=== PATIENT | male | born 1985 | race Caucasian/White ===

== ENCOUNTER 2018-07-29 15:09 | Emergency (ER) | payer OTHER, SELFPAY ==
[2018-07-29 15:12] VITALS: BP 100/63; PULSE 88; RESP 18; O2SAT 94; BMI 35.5
--- NOTE | 2018-07-29 15:23 | ED_ITS ---
HPI - Allergic Reaction General Chief complaint: Allergic Reaction Stated complaint: heart racing/eyes (everything is bright)/n&v Time Seen by Provider: 07/29/18 15:16 Source: patient Mode of arrival: ambulatory Limitations: no limitations History of Present Illness HPI narrative: 33-year-old male comes emergency department with complaint of allergic reaction. About 10-20 minutes ago he was stung on the right side of the neck by a DD. 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 Patient states these have some swelling on the side of his neck. He denies any difficulty breathing, no swelling of his throat, no swelling of his lips or oropharynx. He feels little nauseated, feels like he needs to vomit and has thrown up a couple times. He has not had any diarrhea. He denies any chest pain shortness of ck ath currently. No rashes elsewhere. Patient denies any other medical problems, no prior surgical history, he denies any allergies to medications. He does smoke tobacco, he drinks alcohol, he occasionally uses THC but denies other illicit. Related Data Previous Rx's Medication Instructions Recorded epinephrine [EpiPen] 0.3 mg IM Q10M PRN #2 each 07/29/18 prednisone 50 mg PO DAILY #3 tab 07/29/18 Allergies Allergy/AdvReac Type Severity Reaction Status Date / Time latex Allergy Verified 07/29/18 15:12 Review of Systems Review of Systems ROS Unobtainable: All systems reviewed & are unremarkable except as noted in HPI and below Constitutional Denies chills, Denies fever(s) and Reports malaise ENT Ears, Nose, Mouth, and Throat: Reports neck pain (Swelling right neck at the sting site), Denies sore throat, Denies throat swelling and Denies tongue swelling Cardiovascular Denies chest pain, Denies syncope, Reports rapid heart rate, Denies edema, Denies irregular heart rhythm, Denies lightheadedness, Denies palpitations, Denies dyspnea, Denies dyspnea on exertion and Denies orthopnea Respiratory Denies change in phlegm color, Denies chest congestion, Denies cough, Denies ex cessive phlegm production, Denies dyspnea, Denies dyspnea on exertion and Denies wheezing Gastrointestinal Gastrointestinal: Denies abdominal pain, Denies change in bowel habits, Denies constipation, Denies diarrhea, Reports nausea and Reports vomiting Genitourinary Denies hematuria, Denies flank pain, Denies urinary frequency and Denies urinary urgency Musculoskeletal Reports neck pain (Swelling right neck at the sting site) Integumentary/Breasts Denies rash and Denies skin swelling Neurologic Denies syncope Endocrine Denies palpitations Allergic/Immunologic Denies throat swelling, Denies tongue swelling and Denies wheezing Exam Initial Vital Signs Initial Vital Signs: Vital Signs Pulse Rate 88 07/29/18 15:12 Respiratory Rate 18 07/29/18 15:12 Blood Pressure 100/63 07/29/18 15:12 Pulse Oximetry 94 07/29/18 15:12 GEN: well nourished, male, alert and oriented x 3, patient appears to be in mild distress. HEENT: Atraumatic, pupils are equal round reactive to light, extraocular movements are intact, nares are clear. Throat is clear without any exudates, erythema, tonsillar enlargement or uvular deviation, patient is little bit sore in the right neck, can see the stinger site, there is no stinger present it appears to have been removed. There is some erythema surrounding the area. No stridor. HEART: Regular rate and rhythm without murmur, clicks, rubs. LUNGS:Lungs clear to auscultation, no wheezes, rales, crackles, chest moves symmetrically ABD:bowel sounds normal, soft, non-tender, no guarding, rebound, rigidity, no masses noted, no hepatosplenomegaly MSCL: Non-tender, no muscle atrophy, muscles strength 5/5 upper and lower extremities, full range of motion, normal gait NEURO:CN 2-12 intact, sensation normal SKIN: patient has some erythema that could be consistent with sunburn and he also works outdoors. He states that there is no rash elsewhere, no hives are noted. Course Orders Ordered: Discontinued Medications Diphenhydramine HCl (Benadryl) 50 mg IV NOW ONE Stop: 07/29/18 15:17 Last Admin: 07/29/18 15:28 Dose: 50 mg Famotidine (Pepcid) 20 mg in 50 mls @ 200 mls/hr IV NOW ONE Stop: 07/29/18 15:30 Last Infusion: 07/29/18 15:37 Dose: 0 mls/hr Admin: 07/29/18 15:28 Dose: 200 mls/hr Sodium Chloride (Normal Saline 0.9%) 1,000 mls @ 1,000 mls/hr IV BOLUS ONE Stop: 07/29/18 16:15 Last Infusion: 07/29/18 16:13 Dose: 0 mls/hr Admin: 07/29/18 15:28 Dose: 1,000 mls/hr Methylprednisolone (Solu-Medrol 125 Mg Vial) 125 mg IV NOW ONE Stop: 07/29/18 15:17 Last Admin: 07/29/18 15:28 Dose: 125 mg Vital Signs - 8 hr 07/29/18 15:12 07/29/18 15:45 07/29/18 16:00 Temperature Pulse Rate 88 62 75 Respiratory Rate 18 10 L 17 Blood Pressure 100/63 Blood Pressure [Left Arm] 137/87 143/86 H Pulse Oximetry 94 99 100 07/29/18 16:12 07/29/18 16:52 Temperature 98.3 F Pulse Rate 78 Respiratory Rate 18 Blood Pressure Blood Pressure [Left Arm] 144/84 H Pulse Oximetry 99 MDM - Allergic Reaction MDM Narrative Medical decision making narrative: Patient does not appear to be in anaphylaxis, he was given Benadryl, Solu-Medrol as well as Pepcid and fluids. Recheck about 45 minutes after medications patient is feeling much better. Seven little bit of pain at the sting or side on the neck but otherwise feels asymptomatic. Plan to watch the patient for entire hour after medications if he is still doing well plan to DC home. He did not appear to be having an aphylactic reaction today but was given EpiPen with instructions in case he had recurrent stings in the future. As well as prednisone for 3 days and encouraged to continue Benadryl as needed. Discharge Plan Departure Patient Disposition: Home Clinical Impression: Allergic reaction to bee sting Discharge Date/Time: 07/29/18 17:26 Interventions: ED Discharge Assessment Last Done: 07/29/18 17:25 Instructions: DI for Anaphylaxis, DI for General Allergic Reactions Activity Restrictions/Additional Instructions: Follow-up with primary care in the next 2-3 days if her symptoms have not totally resolved. Take steroids until completely gone. Take Benadryl 1-2 tablets every 6-8 hours for symptoms. Return to the emergency department for fevers greater than 100.4 F, recurrent swelling of the neck, fat face, mouth or throat, if it is difficult to breathe, if you have stridor or high-pitched wheezing, new chest pain, shortness of breath, persistent vomiting, diarrhea, hives or new rash or other new or concerning symptoms. Prescriptions: New prednisone 50 mg tablet 50 mg PO DAILY Qty: 3 RF: 0 epinephrine [EpiPen] 0.3 mg/0.3 mL auto-injector 0.3 mg IM Q10M PRN (Reason: anaphylaxis) Qty: 2 RF: 0
[2018-07-29] MEDS: methylPREDNISolone 125 MG/2 ML VIAL IV (15:28)
[2018-07-29] MEDS: SODIUM CHLORIDE 0.9% 1,000 ML 1000 ML IV (15:28)
[2018-07-29] MEDS: FAMOTIDINE 20 MG/50 ML PIGGYBACK 200 MG IV (15:28)
[2018-07-29] MEDS: diphenhydrAMINE 50 MG/ML VIAL IV (15:28)
[2018-07-29 15:45] VITALS: BP 137/87; PULSE 62; RESP 10; O2SAT 99
[2018-07-29 16:00] VITALS: BP 143/86; PULSE 75; RESP 17; O2SAT 100
[2018-07-29 16:12] VITALS: TEMP 36.8
[2018-07-29 16:52] VITALS: BP 144/84; PULSE 78; RESP 18; O2SAT 99
== END 2018-07-29 17:26 | disposition home or self-care (01) ==
PROVIDERS: Emergency Provider Emergency Medicine
DX: T63.441A Toxic effect of venom of bees, accidental (unintentional), initial encounter (principal); R00.0 Tachycardia, unspecified; R11.2 Nausea with vomiting, unspecified; Y99.0 Civilian activity done for income or pay
CPT/HCPCS: 96361; 96374; 96375; 99283; 99284; J1200; J2930

== ENCOUNTER → 2019-06-20 17:01 | Outpatient (CLI) | payer OTHER, SELFPAY ==
--- NOTE | 2019-06-20 17:03 | DI.US.S_ITS ---
PROCEDURE: US ABDOMEN LIMITED INDICATIONS: POSSIBLE INGUINAL HERNIA ON RIGHT TECHNIQUE: Real-time focused scanning was performed of the abdomen, with image documentation. COMPARISON: None. FINDINGS: In this patient with this given history, scrutiny is given to the right groin for a hernia. None can be seen. Multiple prominent right inguinal lymph nodes are seen, with the largest measuring up to 2.4 cm in length. This largest lymph node demonstrates a normal, well preserved fatty center. IMPRESSION: Negative for hernia. Prominent right groin lymph nodes are seen. Dictated by: Venancio Hathaway M.D. on 06/20/2019 at 16:34 Approved by: Venancio Hathaway M.D. on 06/20/2019 at 16:35
== END ==
PROVIDERS: Referring Provider Family Medicine; Visit Provider Family Medicine
DX: R10.31 Right lower quadrant pain (principal); R59.0 Localized enlarged lymph nodes
CPT/HCPCS: 76705

== ENCOUNTER → 2019-06-26 06:58 | Outpatient (CLI) | payer OTHER, SELFPAY ==
[2019-06-26 09:50] LABS: Add Manual Diff / Slide Review NO; Basophils Absolute Auto 0 /uL (0-100); Basophils Percent Auto 0.6 % (0-2); Eosinophils Absolute Auto 200 /uL (0-450); Eosinophils Percent Auto 2.6 % (2-4); Hematocrit 46.1 % (41-53); Lymphocytes Absolute Auto 1800 /uL (1100-4500); Lymphocytes Percent Auto 23.3 % (25-40); Mean Corpuscular HGB Conc 34.6 % (30-36); Mean Corpuscular Hemoglobin 33.6 PG (26-34); Mean Corpuscular Volume 97.1 fL (80-100); Monocytes Absolute Auto 700 /uL (0-900); Monocytes Percent Auto 9.5 % (3-14); Neutrophils Absolute Auto 5000 /uL (1500-7000); Platelet Count 303 X10^3/uL (150-400); Red Blood Cell Count 4.75 X10^6/uL (4.5-5.9); Red Cell Distribution Width 13.2 % (11.6-14.8); White Blood Cell Count 7.8 X10^3/uL (4.5-11.0)
[2019-06-26 10:01] LABS: Alanine Aminotransferase 46 IU/L (<50); Albumin 5.2 g/dL (3.5-5.0); Albumin Globulin Ratio 1.7 (1.0-2.8); Alkaline Phosphatase 93 U/L (38-126); Aspartate Aminotransferase 42 IU/L (17-59); BUN Creatinine Ratio 16.4 (6-22); Bilirubin Total 0.8 mg/dL (0.2-1.3); Blood Urea Nitrogen 12 mg/dL (9-20); Calcium 10.5 mg/dL (8.4-10.2); Carbon Dioxide 29 mmol/L (22-32); Chloride 100 mmol/L (98-107); Cholesterol 221 mg/dL (140-199); Estimated Glomerular Filt Rate > 60.0 mL/min (>60); Glucose 99 mg/dL (70-100); HDL Cholesterol 61 mg/dL (40-60); HEMOLYSIS < 15 (0-50); LDL Cholesterol Calculated 104 mg/dL (<100); Potassium 4.3 mmol/L (3.4-5.1); Sodium 141 mmol/L (137-145); Total Protein 8.2 g/dL (6.3-8.2); Triglycerides 279 mg/dL (35-150)
== END ==
PROVIDERS: PCP Family Medicine; Referring Provider Family Medicine; Visit Provider Family Medicine
DX: R10.31 Right lower quadrant pain (principal); R59.0 Localized enlarged lymph nodes
CPT/HCPCS: 36415; 80053; 80061; 85025

== ENCOUNTER → 2019-06-26 13:09 | Outpatient (CLI) | payer OTHER, SELFPAY ==
--- NOTE | 2019-06-26 13:11 | DI.CT.S_ITS ---
PROCEDURE: CT ABDOMEN PELVIS W CON INDICATIONS: Abdominal pains lower right TECHNIQUE: After the administration of intravenous contrast, 5 mm thick sections acquired from the diaphragm to the symphysis. 5 mm coronal and sagittal reformats were acquired. For radiation dose reduction, the following was used: automated exposure control, adjustment of mA and/or kV according to patient size. COMPARISON: [facility], , ABDOMEN LIMITED, 06/20/2019, 17:13. FINDINGS: Image quality: Excellent. ABDOMEN: Lung bases: Lung bases are clear. Heart size is normal. Solid organs: Liver is normal in size and enhancement. Gallbladder is normal. Biliary system is non dilated. Pancreas enhances normally. Spleen is normal in size and enhancement. No adrenal nodules. Kidneys demonstrate normal size and enhancement, without hydronephrosis. Peritoneum and bowel: Bowel loops demonstrate normal wall thickness and caliber. No free fluid or air. Nodes and vessels: No retroperitoneal or mesenteric adenopathy by size criteria. Aorta and inferior vena cava are normal in size. Miscellaneous: No ventral hernias. PELVIS: Genitourinary: Bladder wall thickness is normal. Miscellaneous: No inguinal hernias. There is an elongated right inguinal lymph node measuring 0.7 cm in short axis and 2.2 cm long, most likely a reactive lymph node. Bones: No suspicious bony lesions. No vertebral body compression fractures. IMPRESSION: 1. No right inguinal hernia. 2. Elongated right inguinal lymph node measures 0.7 cm in short axis, normal by size criteria. It is most likely a benign reactive lymph node. This was seen on the previous ultrasound with fatty hilum. Dictated by: Estevan Cano M.D. on 06/26/2019 at 14:19 Approved by: Estevan Cano M.D. on 06/26/2019 at 14:31
== END ==
PROVIDERS: PCP Family Medicine; Referring Provider Family Medicine; Visit Provider Family Medicine
DX: R10.31 Right lower quadrant pain (principal); R59.0 Localized enlarged lymph nodes
CPT/HCPCS: 36415; 74177; 80053; 80061; 85025; Q9967

== ENCOUNTER 2020-08-17 21:16 | Emergency (ER) | payer OTHER, SELFPAY ==
[2020-08-17] VITALS (7 sets, daily range): BP systolic 172–195; BP diastolic 77–120; PULSE 90–111; RESP 13–23; TEMP 36.8; O2SAT 93–98; BMI 37.1
--- NOTE | 2020-08-17 21:25 | DI.RAD.S_ITS ---
PROCEDURE: XR CHEST 1V INDICATIONS: chest pain TECHNIQUE: One view of the chest was acquired. COMPARISON: None. FINDINGS: Surgical changes and devices: None. Lungs and pleura: Lungs are clear. No pleural effusions or pneumothorax. Mediastinum: Mediastinal contours appear normal. Heart size is normal. Bones and chest wall: No suspicious bony lesions. Overlying soft tissues appear unremarkable. IMPRESSION: No acute cardiopulmonary disease. Dictated by: Estevan Cano M.D. on 08/17/2020 at 21:47 Approved by: Estevan Cano M.D. on 08/17/2020 at 21:53
--- NOTE | 2020-08-17 21:45 | ED.CHESTPAIN ---
HPI - Chest Pain General Chief Complaint: Chest Pain Stated Complaint: chest pains Time Seen by Provider: 08/17/20 21:25 Source: patient Mode of arrival: Ambulatory Limitations: no limitations History of Present Illness HPI narrative: Patient is a 35-year-old male here for evaluation of upper abdominal and chest discomfort. He states that his symptoms started earlier today. He has had symptoms like this in the past and has been associated with vomiting and that is what happened earlier today. He vomited 1 time and afterwards started having discomfort. Prior to today in the symptoms normally last only a short period time but today they have continued. There was no blood in the vomit. There is no change in bowel habits. Has not tried anything for his symptoms prior to arrival Related Data Previous Rx's Medication Instructions Recorded epinephrine 0.3 mg/0.3 mL 0.3 mg IM Q10M PRN #2 each 07/29/18 injection, auto-injector (EpiPen) sucralfate 1 gram tablet (Carafate) 1 g PO QACHS #60 tab 08/18/20 Allergies Allergy/AdvReac Type Severity Reaction Status Date / Time bee venom protein (honey bee) Allergy Verified 08/17/20 21:37 latex Allergy Verified 06/20/19 13:47 Review of Systems Constitutional Constitutional: Reports system reviewed and no additional complaints, except as documented Cardiovascular Cardiovascular: Reports chest pain and Denies dyspnea Respiratory Respiratory: Denies dyspnea Gastrointestinal Comments: Abdominal pain, nausea vomiting Musculoskeletal Comments: No back pain Integumentary/Breasts Comments: No rash Hematologic/Lymphatic On Anticoagulants: No Patient History Medical History RLQ abdominal pain Social History Smoking Status: Former smoker alcohol intake: current substance use type: marijuana Smoking Status: Former smoker alcohol intake frequency: holidays/special occasions only Substance Use Type: marijuana Exam Initial Vital Signs Initial Vital Signs: Vital Signs Pulse Rate 106 H 08/17/20 21:36 Respiratory Rate 18 08/17/20 21:36 Blood Pressure 181/118 H 08/17/20 21:36 Pulse Oximetry 98 08/17/20 21:36 Const General: cooperative and healthy appearing HENKS Head: normal to inspection and normocephalic Resp Effort & Inspection: normal respiratory effort Cardio Rate: tachycardic Rhythm: regular rhythm GI Palpation: soft and tender (Epigastric region and right upper quadrant) Skin General: no rashes or lesions noted Neuro General: patient alert, patient awake and patient oriented x3 Extrem General: normal to inspection and capillary refill normal Psych Appearance: grossly normal Course Orders Ordered: ED Orders 08/17/20 21:25 XR chest 1V Stat EKG-12 Lead Stat 08/17/20 22:00 Complete Blood Count AUTO DIFF Stat Comprehensive Metabolic Panel Stat Lipase Stat 08/17/20 22:26 US abdomen limited Stat Discontinued Medications Al Hydrox/Mg Hydrox/Simethicone 20 ml/ Lidocaine HCl 15 ml 0 ml PO NOW ONE Stop: 08/17/20 21:47 Last Admin: 08/17/20 22:04 Dose: 35 ml Documented by: NASEEM Sodium Chloride (Normal Saline 0.9%) 1,000 mls @ 1,000 mls/hr IV BOLUS ONE Stop: 08/17/20 22:45 Last Infusion: 08/17/20 23:10 Dose: 0 mls/hr Documented by: Admin: 08/17/20 22:05 Dose: 1,000 mls/hr Documented by: NASEEM Lorazepam (Lorazepam 0.5 Mg Tablet) 1 mg PO NOW ONE Stop: 08/18/20 00:40 Last Admin: 08/18/20 00:42 Dose: 1 mg Documented by: NASEEM Ondansetron HCl (Ondansetron 4 Mg/2 Ml Inj) 4 mg IV NOW ONE Stop: 08/17/20 21:47 Last Admin: 08/17/20 22:04 Dose: 4 mg Documented by: NASEEM Ondansetron HCl (Ondansetron 4 Mg Odt Prepack) 1 bottle MISC SEEINSTR ONE Stop: 08/18/20 00:14 Last Admin: 08/18/20 00:27 Dose: 1 bottle Documented by: NASEEM Pantoprazole Sodium (Pantoprazole 40 Mg Vial) 40 mg IV NOW ONE Stop: 08/17/20 21:47 Last Admin: 08/17/20 22:04 Dose: 40 mg Documented by: NASEEM Vital Signs Vital signs: Vital Signs - 8 hr 08/17/20 21:36 08/17/20 21:37 08/17/20 22:00 Temperature 98.2 F Pulse Rate 106 H 99 H 111 H Respiratory Rate 18 22 20 Blood Pressure 181/118 H 181/118 H 195/115 H Pulse Oximetry 98 97 97 08/17/20 22:30 08/17/20 23:00 08/17/20 23:01 Temperature Pulse Rate 93 H 90 98 H Respiratory Rate 14 13 23 Blood Pressure 191/120 H 172/77 H Pulse Oximetry 96 96 93 08/17/20 23:30 08/18/20 00:00 08/18/20 00:54 Temperature 98.6 F Pulse Rate 94 H 104 H 98 H Respiratory Rate 17 22 24 Blood Pressure 187/108 H Pulse Oximetry 97 98 98 MDM - Chest Pain Lab Data Attestation: I reviewed the patient's lab results. Result diagrams: 08/17/20 22:00 08/17/20 22:00 Labs: Lab Results 08/17/20 08/17/20 Range/Units 22:00 22:00 WBC 8.7 (4.5-11.0) X10^3/uL RBC 4.94 (4.5-5.9) X10^6/uL Hgb 16.3 (13.5-17.5) g/dL Hct 46.7 (41-53) % MCV 94.6 (80-100) fL MCH 32.9 (26-34) PG MCHC 34.8 (30-36) % RDW 13.1 (11.6-14.8) % Plt Count 289 (150-400) X10^3/uL Neut % (Auto) 78.6 H (50-75) % Lymph % (Auto) 13.8 L (25-40) % [place] % (Auto) 7.1 (3-14) % Eos % (Auto) 0.1 L (2-4) % Baso % (Auto) 0.4 (0-2) % Neut # (Auto) 6800 (7881-9711) /uL Lymph # (Auto) 1200 (2124-2493) /uL [place] # (Auto) 600 (0-900) /uL Eos # (Auto) 0 (0-450) /uL Baso # (Auto) 0 (0-100) /uL Sodium 136 L (137-145) mmol/L Potassium 3.9 (3.4-5.1) mmol/L Chloride 98 (98-107) mmol/L Carbon Dioxide 24 (22-32) mmol/L BUN 14 (9-20) mg/dL Creatinine 0.73 (0.66-1.25) mg/dL Estimated GFR > 60.0 (>60) mL/min BUN/Creatinine Ratio 19.2 (6-22) Glucose 114 H (70-100) mg/dL Calcium 11.3 H (8.4-10.2) mg/dL Total Bilirubin 0.8 (0.2-1.3) mg/dL AST 81 H (17-59) IU/L ALT 103 H (<50) IU/L Alkaline Phosphatase 107 (38-126) U/L Total Protein 8.1 (6.3-8.2) g/dL Albumin 4.9 (3.5-5.0) g/dL Globulin 3.2 (1.7-4.1) g/dL Albumin/Globulin Ratio 1.5 (1.0-2.8) Lipase 501 H (23-300) U/L Urine Dip Bedside Urine Glucose Negative Bedside Urine Bilirubin - Negative Bedside Urine Ketone +/- 5 Urine Specific [place] 1.020 Bedside Urine Occult Blood - Negative Bedside Urine pH 7 Bedside Urine Protein + 30 Bedside Urine Urobilinogen - Negative Bedside Urine Nitrite - Negative Bedside Urine Leukocytes - Negative Esterase Imaging Data US - abdomen: Radiologist's Impression: Normal gallbladder ECG Data Attestation: I personally reviewed and interpreted this ECG as follows: Interpretation: Sinus tachycardia Ventricular rate of 102 Normal axis Normal QRS Normal QTC No ST T wave changes MDM Narrative Medical decision making narrative: Patient does have a slight elevation in his LFTs and lipase however is right upper quadrant ultrasound is unremarkable. His EKG is unremarkable. Patient has had symptoms like this in the past and does seem to be associated with vomiting. He did report improvement of symptoms after the GI cocktail. I do suspect that his symptoms are GI related did not cardiovascular nor respiratory. Send patient home with a prescription for Carafate. We did discuss the use of a H2 vincent. Will also send home with nausea medication. Informed him he needed to talk with his primary doctor about a referral for a engraver pantograph. He expressed understanding and agreement. Discharge Plan Departure Patient Disposition: Home Clinical Impression: Abdominal pain Instructions: DI for Abdominal Pain-Adult Activity Restrictions/Additional Instructions: I do recommend that for the next several days you eat a bland diet. You can use the nausea medicine as needed. Also recommend that you purchase a medicine called famotidine/Pepcid [id number]. This is a 1 time a day as needed medicine however recommend that you take it on a daily basis for the next 7-14 days. You were also given a prescription for medicine called Carafate. This medicine is 4 times a day and I recommend that for the next 7 days you take it on a daily basis as directed but then after that you can take it as needed. I do recommend you contact your primary provider for follow-up. Return to the emergency department for any new or worsening symptoms Prescriptions: New sucralfate [Carafate] 1 gram tablet 1 g PO QACHS Qty: 60 RF: 2 No Action epinephrine [EpiPen] 0.3 mg/0.3 mL auto-injector 0.3 mg IM Q10M PRN (Reason: anaphylaxis) Qty: 2 RF: 0 Referrals: Vasiliy Licona DO [Primary Care Provider] -
[2020-08-17] MEDS: PANTOPRAZOLE 40 MG VIAL IV (22:04)
[2020-08-17] MEDS: MAG HYDROX/ALUMINUM/SIMETH SUS 20 ML, LIDOCAINE VISCOUS 2% 15 ML PO (22:04)
[2020-08-17] MEDS: ONDANSETRON 4 MG/2 ML INJ IV (22:04)
[2020-08-17] MEDS: SODIUM CHLORIDE 0.9% 1,000 ML 1000 ML IV (22:05)
[2020-08-17 22:11] LABS: Add Manual Diff / Slide Review NO; Basophils Absolute Auto 0 /uL (0-100); Basophils Percent Auto 0.4 % (0-2); Eosinophils Absolute Auto 0 /uL (0-450); Eosinophils Percent Auto 0.1 % (2-4); Hematocrit 46.7 % (41-53); Hemoglobin 16.3 g/dL (13.5-17.5); Lymphocytes Absolute Auto 1200 /uL (1100-4500); Lymphocytes Percent Auto 13.8 % (25-40); Mean Corpuscular HGB Conc 34.8 % (30-36); Mean Corpuscular Hemoglobin 32.9 PG (26-34); Mean Corpuscular Volume 94.6 fL (80-100); Monocytes Absolute Auto 600 /uL (0-900); Monocytes Percent Auto 7.1 % (3-14); Neutrophils Absolute Auto 6800 /uL (1500-7000); Neutrophils Percent Auto 78.6 % (50-75); Platelet Count 289 X10^3/uL (150-400); Red Blood Cell Count 4.94 X10^6/uL (4.5-5.9); Red Cell Distribution Width 13.1 % (11.6-14.8); White Blood Cell Count 8.7 X10^3/uL (4.5-11.0)
[2020-08-17 22:17] LABS: Alanine Aminotransferase 103 IU/L (<50); Albumin 4.9 g/dL (3.5-5.0); Albumin Globulin Ratio 1.5 (1.0-2.8); Alkaline Phosphatase 107 U/L (38-126); Aspartate Aminotransferase 81 IU/L (17-59); BUN Creatinine Ratio 19.2 (6-22); Bilirubin Total 0.8 mg/dL (0.2-1.3); Blood Urea Nitrogen 14 mg/dL (9-20); Calcium 11.3 mg/dL (8.4-10.2); Carbon Dioxide 24 mmol/L (22-32); Chloride 98 mmol/L (98-107); Estimated Glomerular Filt Rate > 60.0 mL/min (>60); Globulin 3.2 g/dL (1.7-4.1); Glucose 114 mg/dL (70-100); HEMOLYSIS 31 (0-50); Lipase 501 U/L (23-300); Potassium 3.9 mmol/L (3.4-5.1); Sodium 136 mmol/L (137-145); Total Protein 8.1 g/dL (6.3-8.2)
--- NOTE | 2020-08-17 22:26 | DI.US.S_ITS ---
PROCEDURE: US ABDOMEN LIMITED INDICATIONS: RUQ PAIN TECHNIQUE: Real-time focused scanning was performed of the abdomen, with image documentation. COMPARISON: [facility], CT, CT ABDOMEN PELVIS W CON, 06/26/2019, 13:58. [facility], US, US ABDOMEN LIMITED, 06/20/2019, 17:13. FINDINGS: Liver is normal in size and homogeneous in echotexture. Gallbladder is sonographically normal. No gallstones. No gallbladder wall thickening. No pericholecystic fluid. Positive sonographic Pulido sign. Biliary tree is nondilated. Common bile duct measures 5.9 millimeters. Pancreatic head and body pancreas are sonographically normal. Tail of pancreas is obscured by bowel gas cannot be evaluated. IMPRESSION: No sonographic evidence of cholelithiasis or cholecystitis. If there is continued clinical concern for cholecystitis, a nuclear medicine HIDA scan should be considered for further evaluation. Dictated by: Joanne Sun MD, PhD on 08/18/2020 at 6:34 Approved by: Joanne Sun MD, PhD on 08/18/2020 at 6:36
[2020-08-18] VITALS: PULSE 104; RESP 22; O2SAT 98
[2020-08-18] MEDS: ONDANSETRON 4 MG ODT PREPACK 1 BOTTLE MISC (00:27)
--- NOTE | 2020-08-18 00:39 | PC.NURSE ---
Patient was getting ready for discharge and started feeling shaky and weird. RN checked patient's blood sugar (107) and gave patient some juice and notified MD. MD assessed and ordered some ativan.
[2020-08-18] MEDS: LORazepam 0.5 MG TABLET 1 MG PO (00:42)
[2020-08-18 00:54] VITALS: BP 187/108; PULSE 98; RESP 24; TEMP 37; O2SAT 98
== END 2020-08-18 00:56 | disposition home or self-care (01) ==
PROVIDERS: Emergency Provider Emergency Medicine; PCP Family Medicine
DX: R10.11 Right upper quadrant pain (principal); R00.0 Tachycardia, unspecified
CPT/HCPCS: 36415; 71045; 76705; 80053; 81003; 83690; 85025; 93005; 96361; 96374; 96375; 99284; C9113; J2405

== ENCOUNTER → 2020-09-17 09:17 | Outpatient (CLI) | payer OTHER, SELFPAY ==
[2020-09-17 10:09] LABS: Add Manual Diff / Slide Review NO; Basophils Absolute Auto 0 /uL (0-100); Basophils Percent Auto 0.3 % (0-2); Eosinophils Absolute Auto 0 /uL (0-450); Eosinophils Percent Auto 0.2 % (2-4); Hematocrit 50.1 % (41-53); Hemoglobin 17.3 g/dL (13.5-17.5); Lymphocytes Absolute Auto 1200 /uL (1100-4500); Lymphocytes Percent Auto 12.2 % (25-40); Mean Corpuscular HGB Conc 34.6 % (30-36); Mean Corpuscular Hemoglobin 33.1 PG (26-34); Mean Corpuscular Volume 95.6 fL (80-100); Monocytes Absolute Auto 800 /uL (0-900); Monocytes Percent Auto 8.6 % (3-14); Neutrophils Absolute Auto 7500 /uL (1500-7000); Neutrophils Percent Auto 78.7 % (50-75); Platelet Count 194 X10^3/uL (150-400); Red Blood Cell Count 5.24 X10^6/uL (4.5-5.9); Red Cell Distribution Width 12.7 % (11.6-14.8); White Blood Cell Count 9.5 X10^3/uL (4.5-11.0)
[2020-09-17 10:31] LABS: Albumin 4.8 g/dL (3.5-5.0); Albumin Globulin Ratio 1.5 (1.0-2.8); Alkaline Phosphatase 146 U/L (38-126); Aspartate Aminotransferase 415 IU/L (17-59); Bilirubin Total 2.3 mg/dL (0.2-1.3); Blood Urea Nitrogen 9 mg/dL (9-20); Carbon Dioxide 22 mmol/L (22-32); Chloride 100 mmol/L (98-107); Estimated Glomerular Filt Rate > 60.0 mL/min (>60); Globulin 3.1 g/dL (1.7-4.1); Glucose 124 mg/dL (70-100); HEMOLYSIS < 15 (0-50); Lipase 155 U/L (23-300); Potassium 3.6 mmol/L (3.4-5.1); Sodium 138 mmol/L (137-145); Total Protein 7.9 g/dL (6.3-8.2)
[2020-09-17 10:39] LABS: Alanine Aminotransferase 301 IU/L (<50)
[2020-09-17 10:52] LABS: TSH w/ Reflex to FT4 2.09 uIU/mL (0.47-4.68)
[2020-09-17 12:15] LABS: Creatinine Urine Random 523.3 mg/dL
[2020-09-17 12:16] LABS: Microalbumi Creatinin Ratio Ur 86.1 ug/mg CR (<30); Microalbumin Urine Random 45.1 mg/dL (0-1.6)
[2020-09-18 11:21] LABS: Calcium 8.6 mg/dL (8.7-10.2); Parathyroid Hormone, Intact 28 pg/mL (15-65)
== END ==
PROVIDERS: PCP Family Medicine; Referring Provider Family Medicine; Visit Provider Family Medicine
DX: E83.52 Hypercalcemia (principal); I10 Essential (primary) hypertension; K21.9 Gastro-esophageal reflux disease without esophagitis; R74.8 Abnormal levels of other serum enzymes
CPT/HCPCS: 36415; 80053; 82043; 82310; 82570; 83690; 83970; 84443; 85025

== ENCOUNTER → 2020-09-23 08:24 | Outpatient (CLI) | payer OTHER, SELFPAY ==
--- NOTE | 2020-09-23 08:41 | DI.CT.S_ITS ---
PROCEDURE: CT ABDOMEN WO/W CON INDICATIONS: Significantly elevated liver enzymes and bilirubin TECHNIQUE: 4 phase scanning was performed. Non-contrast 5 mm axial sections acquired from the diaphragm to the iliac crests. Following the administration of intravenous contrast, 5 mm thick arterial-phase, portal venous-phase, and 5-minute delayed phase images were acquired through the liver. 5 mm thick coronal and sagittal reformats were performed. For radiation dose reduction, the following was used: automated exposure control, adjustment of mA and/or kV according to patient size. COMPARISON: None. FINDINGS: Image quality: Excellent. Lung bases: Lung bases are clear. Heart size is normal. Liver: Diffuse hepatic steatosis. Mild hepatomegaly. No focal liver masses. Other solid organs: Gallbladder unremarkable. Biliary system is non dilated. Pancreas is normal in morphology. Spleen is normal in size and enhancement. No adrenal nodules. Both kidneys demonstrate normal size and enhancement, without hydronephrosis or nephrolithiasis. Nodes and vessels: No retroperitoneal or mesenteric adenopathy by size criteria. Aorta and inferior vena cava are normal in size. Bowel and peritoneum: Unenhanced bowel loops are normal in caliber. No free fluid or air. Bones: No suspicious bony lesions. No vertebral body compression fractures. Miscellaneous: No ventral hernias. IMPRESSION: 1. Mild hepatomegaly, diffuse hepatic steatosis. No liver mass or dilated ducts. 2. Otherwise unremarkable CT abdomen with without contrast. Dictated by: Rao Payton M.D. on 09/23/2020 at 8:54 Approved by: Rao Payton M.D. on 09/23/2020 at 8:56
== END ==
PROVIDERS: PCP Family Medicine; Referring Provider Family Medicine; Visit Provider Family Medicine
DX: E83.52 Hypercalcemia (principal); R74.8 Abnormal levels of other serum enzymes; R17 Unspecified jaundice; K76.0 Fatty (change of) liver, not elsewhere classified; R16.0 Hepatomegaly, not elsewhere classified
CPT/HCPCS: 74170; Q9967